=== PATIENT | female | born 1975 | race Caucasian/White ===

== ENCOUNTER → 2024-01-11 14:10 | Outpatient (REF) | payer BC, SELFPAY | LOC: WDC 14:10 | PROVIDERS: ATTENDING PHYSICIAN Nurse Practitioner Family | DX: Z12.31 Encounter for screening mammogram for malignant neoplasm of breast (principal) | CPT/HCPCS: 77063; 77067 ==

== ENCOUNTER 2024-03-23 20:29 | Emergency (ER) | payer BC, SELFPAY ==
[2024-03-23 20:37] VITALS: BP 131/81
[2024-03-23] MEDS: ZOFRAN ODT (ORALLY DISINTEGRATING) 4 MG PO (20:45)
[2024-03-23 21:04] LABS: % Basophils 0.6 % (0-2); % Eosinophils 0.1 % (0-6); % Immature Granulocytes 0.3 % (0-0.5); % Lymphocytes 16.7 % (20.5-51.1); % Monocytes 6.5 % (1.7-9.3); % Neutrophils 75.8 % (42.2-75.2); Absolute Basophils 0.1 10^3/uL (0-0.2); Absolute Lymphocytes 2.3 10^3/uL (1.2-3.4); Absolute Monocytes 0.9 10^3/uL (0.1-0.6); Absolute Neutrophils 10.6 10^3/uL (1.4-6.5); Hemoglobin 12.9 g/dL (12.0-16.0); Mean Corp Hgb Conc. 35.8 g/dL (33.0-37.0); Mean Corpuscular Hgb 33.3 pg (27.0-31.0); Nucleated Red Blood Cells % 0 %; Platelet Count 301 10^3/uL (130-400); Red Blood Cell Count 3.87 10^6/uL (4.20-5.40); Red Cell Dist. Width 13.4 % (11.5-14.5); White Blood Cell Count 13.9 10^3/uL (4.8-10.8)
[2024-03-23 21:12] LABS: HCG, Serum Qualitative Screen Negative
[2024-03-23 21:16] LABS: ALT (SGPT) 20 U/L (0-35); AST (SGOT) 39 U/L (14-36); Alkaline Phosphatase 54 U/L (38-126); Blood Urea Nitrogen 17 mg/dl (7-17); Calcium 10.3 mg/dl (8.4-10.2); Carbon Dioxide 18 mmol/L (22-30); Chloride 105 mmol/L (98-107); Glucose 137 mg/dl (70-99); Potassium 3.6 mmol/L (3.5-5.1); Sodium 137 mmol/L (135-145); Total Bilirubin 0.6 mg/dl (0.2-1.3); Total Protein 7.4 g/dl (6.3-8.2); eGFR > 60.00
[2024-03-23 21:17] LABS: Lipase 93 U/L (23-300)
[2024-03-23 21:46] VITALS: BMI 22.7
--- NOTE | 2024-03-23 22:53 | ED.GENMED ---
History of Present Illness
General
Chief Complaint: Dehydration Symptoms
Time Seen by Provider: 03/23/24 22:53
History of Present Illness
History of Present Illness:
HPI: The patient was had a hot Pilates class which ended around 7 PM. Around that time she started having severe nausea, headache, generalized unwell feeling, muscle fasciculations. Currently her symptoms are improved but persisting. She was
given oral Zofran upon arrival here but cannot tolerated.
EXAM:
GENERAL: The patient has appropriate mental status but appears somewhat uncomfortable
HEENT: Moist oral mucosa
CARDIOVASCULAR: No murmurs, borderline tachycardic heart rate, regular rhythm, No chest wall tenderness
PULMONARY: No respiratory distress, breath sounds are clear and equal
ABDOMEN: Soft with no peritoneal signs, no tenderness
NEUROLOGIC: Excellent strength all extremities, no coordination deficits
PSYCHIATRIC: Appropriate mental status, normal insight and judgement
EXTREMITIES: Nontender, no edema, moves all extremities equally, some muscle fasciculations are noted
SKIN: No rash, no lesions
TIME OF INITIAL ENCOUNTER: 11 PM
NUMBER AND COMPLEXITY OF PROBLEMS ADDRESSED AT THE ENCOUNTER
� Chronic conditions affecting care: Denies past medical history, has had breast augmentation
� Acute Exacerbation and/or Progression of Chronic Illness: This is an acute problem
� Differential Diagnosis includes: Heat exhaustion, heat stroke unlikely as she has appropriate mental status, viral syndrome
AMOUNT AND/OR COMPLEXITY OF DATA TO BE REVIEWED AND ANALYZED
� I performed an independent evaluation of and my interpretation is:
EKG: Sinus 88, normal axis, nonspecific ST abnormality
CT:
X-rays:
Laboratory Studies: White count 13.9, hemoglobin 12.9, bicarb low at 18, normal, lipase and hCG negative
Other:
� Review of other/old records: No old records available for review in [facility]
� Clinical information was obtained by an independent historian: None needed
� Prescriptions/Medications Considered but not given:
� Further testing considered but not performed:
RISK OF COMPLICATIONS AND/OR MORBIDITY OR MORTALITY OF PATIENT MANAGEMENT
� Social determinants of health affecting care: Lives at home
� Discussion with other providers:
� Escalation of care including admission/observation vs risk of discharge considered: The patient is given IV fluids, Toradol for headache, Pepcid/Zofran for stomach upset. Symptoms started at the end of her hot Pilates class.
On reassessment at 1:10 AM, the patient feels significantly improved and taking p.o.
Phy Exam
Physical Exam
Physical Exam:
See HPI
Course
Orders/Labs/Results
Orders:
Orders
03/23/24 20:41
EKG [Electrocardiogram (*1)] Urgent
Reason for Study: Vertigo / Dizzy
EKG- Treatment ONCE
Test Result ONCE
03/23/24 20:43
Ondansetron Orally Disint [Zofran Odt (Orally Disintegrating)] 4 mg .ROUTE .STK-MED ONE
03/23/24 20:44
Ondansetron Orally Disint [Zofran Odt (Orally Disintegrating)] 4 mg PO NOW STA
03/23/24 20:52
CBC/With Diff [Complete Blood Count/With Diff] Urgent
CMP [Comprehensive Metabolic Panel] Urgent
HCG, Serum Qualitative Screen Urgent
Lipase Urgent
03/23/24 23:00
0.9% Sodium Chloride 1000 ml [Nss] 1,000 ml IV BOLUS
0.9% Sodium Chloride 1000 ml [Nss] 1,000 ml IV BOLUS
Famotidine [Pepcid] 20 mg IV NOW STA
Ketorolac [Toradol] 15 mg IV NOW STA
Ondansetron Injectable [Zofran] 4 mg IV NOW STA
03/24/24 00:00
Ondansetron Orally Disint [Zofran Odt (Orally Disintegrating)] 4 mg PO Q8
Abnormal Lab Results
03/23/24
20:52
WBC 13.9 H 10^3/uL
(4.8-10.8)
RBC 3.87 L 10^6/uL
(4.20-5.40)
Hct 36.0 L %
(37.0-47.0)
MCH 33.3 H pg
(27.0-31.0)
Absolute Neuts (auto) 10.6 H 10^3/uL
(1.4-6.5)
Absolute Monos (auto) 0.9 H 10^3/uL
(0.1-0.6)
Neutrophils % 75.8 H %
(42.2-75.2)
Lymphocytes % 16.7 L %
(20.5-51.1)
Carbon Dioxide 18 L mmol/L
(22-30)
Glucose 137 H mg/dl
(70-99)
Calcium 10.3 H mg/dl
(8.4-10.2)
AST 39 H U/L
(14-36)
03/23/24 20:52
03/23/24 20:52
Vital Signs
Initial and Last Documented VS:
Initial Vital Signs
Temp Pulse Resp BP Pulse Ox
97.7 F 101 18 131/81 100
03/23/24 20:37 03/23/24 20:37 03/23/24 20:37 03/23/24 20:37 03/23/24 20:37
Last Documented Vital Signs
Temp Pulse Resp BP Pulse Ox
97.9 F 86 15 126/84 99
03/24/24 00:18 03/24/24 00:18 03/24/24 00:18 03/24/24 00:18 03/24/24 00:18
*Critical Care Note
Total Time (30-74mins, 75-104mins- exclusive of procedures): Not Applicable
ED Attending Note
-
Portions of this chart may have been created with voice recognition software.� Occasional wrong word or��sound alike� substitutions may have occurred due to the inherent limitations of voice recognition software.
Discharge Plan
Departure
Patient Disposition: Home (Routine Discharge)
Date of Disposition: 03/24/24
Time of Disposition: 01:14
Patient with high blood pressure during this ER visit?: Yes
Discharge Problem:
Heat exhaustion
Instructions: Dehydration, Adult (DC), Heat Exhaustion and Heat Stroke (DC)
Referrals:
Felipa Olson MD [Family Provider] -
Activity Restrictions/Additional Instructions:
Your white blood cell count is somewhat elevated but otherwise blood work is unremarkable. We gave you IV fluids. We also gave you nausea medicine, anti-inflammatory medicine, and Pepcid by the IV. Return here if worse.
Interventions
Interventions:
*Risk Screen - Suicide Last Done: 03/23/24 21:56
*General Assessment Last Done: 03/23/24 21:56
*Neglect/Abuse Screening Last Done: 03/23/24 21:56
*ED COVID-19 Vaccine History Last Done: 03/23/24 21:56
ED- Cardiac Assessment Last Done: 03/23/24 21:56
ED- Neurological Assessment Last Done: 03/23/24 21:56
ED- Pulmonary Assessment Last Done: 03/23/24 21:56
Discharge Date and Time
Print Language: FRISIAN
[2024-03-23] MEDS: NSS 1000 IV (23:11)
[2024-03-23] MEDS: ZOFRAN 4 MG IV (23:12)
[2024-03-23] MEDS: TORADOL 15 MG IV (23:14)
[2024-03-23] MEDS: PEPCID 20 MG IV (23:17)
[2024-03-24 00:18] VITALS: BP 126/84
[2024-03-24] MEDS: NSS 1000 IV (00:20)
== END 2024-03-24 01:32 | disposition home or self-care (01) ==
LOC: EMR 20:29
PROVIDERS: Emergency Medicine; EMERGENCY PHYSICIAN Emergency Medicine; FAMILY PHYSICIAN Internal Medicine
DX: R53.83 Other fatigue (principal); R25.3 Fasciculation; R11.0 Nausea; R51.9 Headache, unspecified; R03.0 Elevated blood-pressure reading, without diagnosis of hypertension
CPT/HCPCS: 99284; 96374; 96375 ×2; 96361 ×2; 80053; 83690; 84703; 85025; 93005

== ENCOUNTER → 2025-01-15 07:34 | Outpatient (REF) | payer BC, SELFPAY | LOC: WDC 07:34 | PROVIDERS: ATTENDING PHYSICIAN Family Medicine | DX: Z12.31 Encounter for screening mammogram for malignant neoplasm of breast (principal) | CPT/HCPCS: 77063; 77067 ==

== ENCOUNTER 2025-02-18 06:22 | Day surgery (SDC) | payer BC, SELFPAY | END 2025-02-18 08:41 | disposition home or self-care (01) | LOC: GI 06:22 | PROVIDERS: ATTENDING PHYSICIAN Internal Medicine Gastroenterology | DX: Z12.11 Encounter for screening for malignant neoplasm of colon (principal); Z83.719 Family history of colon polyps, unspecified; K64.8 Other hemorrhoids | CPT/HCPCS: G0105 ==

== ENCOUNTER 2025-06-26 14:31 | Emergency (ER) | payer BC, SELFPAY ==
[2025-06-26 14:36] VITALS: BP 142/107
[2025-06-26 14:48] VITALS: BP 125/88; BMI 24.8
[2025-06-26] MEDS: NSS 1000 IV (14:59)
[2025-06-26 15:00] VITALS: BP 139/97
--- NOTE | 2025-06-26 15:09 | ED.GENMED ---
History of Present Illness
General
Chief Complaint: Headache
Source: patient
Exam Limitations: none
Time Seen by Provider: 06/26/25 14:49
History of Present Illness
History of Present Illness:
49yoF with a history of ADHD presenting with her for evaluation of a headache. Her headache initially started around 4 PM yesterday afternoon when she was returning home from work. The headache was initially mild. She took 2 Excedrin and
took a 1 hour nap and headache seemed improved. She went to a play last night and headache worsened. She took Tylenol multiple times without any significant relief. She started to experience nausea, vomiting, and dizziness around 4 AM this
morning. She is vomited about 4 times throughout the day today. Dizziness is difficult for her to describe although she denies any lightheadedness or vertiginous symptoms. Dizziness is worse with head movement. Headache is currently rated as a
10/10 in severity. She describes a throbbing pain in her occipital region that radiates frontally. Patient has never had similar symptoms in the past. She had a sore throat earlier in the week but denies any fevers. No head trauma, weakness,
paresthesias.
Phy Exam
Physical Exam
Physical Exam:
Sitting in dark room with eyes closed
General Physical Exam
General Presentation: well appearing and mild distress
General age: appears stated age
General Skin: warm and dry
General Habitus: normal
General Mental: alert
ENT Exam
ENT Exam: TM's normal, pharynx normal, neck supple and normocephalic
Additional ENT: No nuchal rigidity
Eye Exam
Eye Exam: PERRL, EOMI and conjunctiva normal
Pulmonary Exam
Pulmonary Exam: no respiratory distress
Neurological Exam
Neurological Exam: alert, no motor deficits and speech normal
[place] Coma Scale
Eye Opening: Spontaneous
Verbal Response: Oriented
Motor Response: Obeys Commands
GCS Total Score: 15
Skin Exam
Skin Exam: normal color and warm/dry
Psychiatric Exam
Psychiatric Exam: normal mood/affect
Course
Orders/Labs/Results
Orders:
Orders
06/26/25 14:57
0.9% Sodium Chloride 1000 ml [Nss] 1,000 ml IV BOLUS
06/26/25 15:05
CT Head & Neck Angio W/wo IV Urgent
Comment:
Reason For Exam: acute onset headache, dizziness
Dexamethasone Sod Phosphate [Decadron] 10 mg IV NOW STA
Diphenhydramine [Benadryl] 25 mg IV NOW STA
Magnesium Sulfate 2 Gram/50 ml [Magnesium Sulfate] 2 gram in 50 ml IV NOW
Metoclopramide [Reglan] 10 mg IV NOW STA
Test Result ONCE
06/26/25 15:27
Complete Blood Count/With Diff Urgent
Comprehensive Metabolic Panel Urgent
HCG, Serum Qualitative Screen Urgent
Abnormal Lab Results
06/26/25
15:27
MCH 32.0 H pg
(27.0-31.0)
Neutrophils % 76.9 H %
(42.2-75.2)
Lymphocytes % 18.6 L %
(20.5-51.1)
Sodium 134 L mmol/L
(135-145)
Glucose 109 H mg/dl
(70-99)
06/26/25 15:27
06/26/25 15:27
Vital Signs
Initial and Last Documented VS:
Initial Vital Signs
Temp Pulse Resp BP Pulse Ox
97.4 F 99 18 142/107 98
06/26/25 14:36 06/26/25 14:36 06/26/25 14:36 06/26/25 14:36 06/26/25 14:36
Last Documented Vital Signs
Temp Pulse Resp BP Pulse Ox
97.4 F 74 18 114/84 98
06/26/25 14:36 06/26/25 16:00 06/26/25 17:00 06/26/25 18:10 06/26/25 18:00
MDM/Problems Addressed
Differential Diagnosis Includes:
49yoF here with a headache since yesterday afternoon. Gradual in onset. Associated with n/v. 10/10 in severity. No prior history of similar headaches. Patient sitting in a dark room with eyes closed during exam. No focal neuro deficits or nuchal
rigidity noted. Differential diagnosis includes: migraine, tension headache, consider subarachnoid hemorrhage, no clinical evidence of meningitis
Initial ED plan: Check CBC, CMP, and CTA head/neck. IV migraine cocktail and reassess.
*Pulse Oximetry
SaO2: 98
Oxygen Mode of Delivery: Room air
Patient hypoxic: no
*Critical Care Note
Total Time (30-74mins, 75-104mins- exclusive of procedures): Not Applicable
Update Note
Update Note:
Lab unremarkable. CTA head/neck is negative for acute findings. Specifically, there is no evidence of hemorrhage or aneurysm. Patient reassessed multiple times and is feeling significantly improved. Headache down to a 1/10 in severity. She is
tolerating PO intake and is now requesting discharge. Suspect migraine as etiology of her symptoms although she has never been formally diagnosed with this in the past. Prescription provided for Reglan and she was advised to f/u with her PCP. ED
return precautions reviewed and she was discharged in stable condition.
ED Attending Note
-
Portions of this chart may have been created with voice recognition software.� Occasional wrong word or��sound alike� substitutions may have occurred due to the inherent limitations of voice recognition software.
Discharge Plan
Departure
Patient Disposition: Home (Routine Discharge)
Date of Disposition: 06/26/25
Time of Disposition: 18:19
Patient with high blood pressure during this ER visit?: No
Discharge Problem:
Acute nonintractable headache
Instructions: Headache, Adult (DC)
Prescriptions:
New
metoclopramide HCl [Reglan] 10 mg tablet
10 mg PO Q8HPRN PRN (Reason: nausea and vomiting) Qty: 20 0RF
No Action
dextroamphetamine-amphetamine [Adderall XR] 10 mg Capsule,Extended Release 24hr
10 mg PO DAILY
Referrals:
Felipa Cobb MD [Family Provider, [facility]]
Activity Restrictions/Additional Instructions:
Take Reglan as needed for nausea. You may combine this with Excedrin and Benadryl for headache.
Please follow-up with your family doctor next week. Return to the ER with any new or worsening symptoms.
Interventions
Interventions:
*Risk Screen - Suicide Last Done: 06/26/25 14:36
*General Assessment Last Done: 06/26/25 14:36
*Neglect/Abuse Screening Last Done: 06/26/25 16:55
*ED- Fall Risk Assessment Last Done: 06/26/25 18:22
*ED COVID-19 Vaccine History Last Done: 06/26/25 14:36
*ED Influenza Vaccine History Last Done: 06/26/25 14:36
*Nursing Disposition Last Done: 06/26/25 18:22
ED- Neurological Assessment Last Done: 06/26/25 14:55
Discharge Date and Time
Discharge Date/Time: 06/26/25 18:27
Print Language: VENEZUELAN
[2025-06-26] MEDS: REGLAN 10 MG IV (15:20)
[2025-06-26] MEDS: BENADRYL 25 MG IV (15:20)
[2025-06-26] MEDS: DECADRON 10 MG IV (15:21)
[2025-06-26] MEDS: MAGNESIUM SULFATE 50 IV (15:21)
[2025-06-26 15:35] LABS: Hematocrit 41.9 % (37.0-47.0); Hemoglobin 13.9 g/dL (12.0-16.0); Mean Corp Hgb Conc. 33.2 g/dL (33.0-37.0); Mean Corpuscular Volume 96.5 fL (81.0-99.0); Nucleated Red Blood Cells % 0 %; Platelet Count 259 10^3/uL (130-400); Red Cell Dist. Width 12.9 % (11.5-14.5)
[2025-06-26 15:51] LABS: HCG, Serum Qualitative Screen Negative
[2025-06-26 15:58] LABS: ALT (SGPT) 17 U/L (0-35); AST (SGOT) 22 U/L (14-36); Albumin 4.6 g/dl (3.5-5.0); Alkaline Phosphatase 48 U/L (38-126); Blood Urea Nitrogen 16 mg/dl (7-17); Calcium 9.4 mg/dl (8.4-10.2); Carbon Dioxide 26 mmol/L (22-30); Chloride 103 mmol/L (98-107); Estimated Creatinine Clearance 75 ml/min; Glucose 109 mg/dl (70-99); Potassium 4.2 mmol/L (3.5-5.1); Sodium 134 mmol/L (135-145); Total Protein 7.5 g/dl (6.3-8.2); eGFR > 60.00
[2025-06-26 16:00] VITALS: BP 124/82
[2025-06-26 17:04] VITALS: BP 128/85
[2025-06-26 18:10] VITALS: BP 114/84
== END 2025-06-26 18:27 | disposition home or self-care (01) ==
LOC: EMR 14:31
PROVIDERS: Physician Assistant; EMERGENCY PHYSICIAN Emergency Medicine; FAMILY PHYSICIAN Family Medicine
DX: R51.9 Headache, unspecified (principal); F90.9 Attention-deficit hyperactivity disorder, unspecified type
CPT/HCPCS: 99284; 96365; 96375 ×3; 96361; 70496; 70498; 80053; 84703; 85025; Q9967